=== PATIENT | male | born 1975 | race Hispanic/Latino ===

== ENCOUNTER 2017-10-16 17:42 | Emergency (ER) | payer MEDICAID, OTHER ==
[2017-10-16 17:48] VITALS: BP 117/71; PULSE 94; RESP 18; TEMP 98.2; O2SAT 97
[2017-10-16 18:02] VITALS: BMI 24.7
[2017-10-16] MEDS ORDERED: TDAP Vaccine 0.5 mL Syr IM ONE (18:12)
--- NOTE | 2017-10-16 18:14 | ED PDOC ---
Arrival/HPI - General Chief Complaint: Abnormal Skin Integrity Time Seen by Provider: 10/16/17 18:02 Historian: Patient - History of Present Illness Narrative History of Present Illness (Text): 10/16/17 18:19 42 yr old male presents today brought in by police for medical clearance for incarceration. pt c/o chronic wounds to both upper extremities. pt states he has had wounds to the upper arms bilaterally for over 1 year. pt denies pain. pt admits to hx of heroine and cocaine use. pt denies fevers/chills. denies SI or HI. no other complaints. Past Medical History - Provider Review Nursing Documentation Reviewed: Yes - Travel History Have you recently traveled outside [place] w/in the past 3 mons?: No - Infectious Disease Hx of Infectious Diseases: None - Tetanus Immunization Tetanus Immunization: Unknown - Past Medical History Past Medical History: No Previous - Cardiac Hx Cardiac Disorders: No - Pulmonary Hx Respiratory Disorders: No - Neurological Hx Neurological Disorder: No - HEENT Hx HEENT Disorder: No - Renal Hx Renal Disorder: No - Endocrine/Metabolic Hx Endocrine Disorders: No - Hematological/Oncological Hx Blood Disorders: Yes Hx Hepatitis C: Yes - Integumentary Hx Dermatological Disorder: Yes Hx Cellulitis: Yes - Musculoskeletal/Rheumatological Hx Musculoskeletal Disorders: No - Gastrointestinal Hx Gastrointestinal Disorders: No - Genitourinary/Gynecological Hx Genitourinary Disorders: No - Psychiatric Hx Psychophysiologic Disorder: Yes Hx Anxiety: Yes Hx Depression: Yes Hx Emotional Abuse: No Hx Substance Use: Yes (HEROINE, COCAINE) - Past Surgical History Past Surgical History: No Previous - Surgical History Hx Appendectomy: Yes - Suicidal Assessment Feels Threatened In Home Enviroment: No Family/Social History - Physician Review Nursing Documentation Reviewed: Yes Family/Social History: Unknown Family HX Smoking Status: Heavy Smoker > 10 Cigarettes Daily Hx Alcohol Use: No Hx Substance Use: Yes (HEROINE, COCAINE) Hx Substance Use Treatment: Yes (opiates) Allergies/Home Meds Allergies/Adverse Reactions: Allergies No Known Allergies Allergy (Verified 10/16/17 17:53) Home Medications: Home Meds Medication Instructions Recorded Confirmed Unobtainable 10/16/17 10/16/17 Review of Systems - Review of Systems Constitutional: absent: Fatigue, Fevers Respiratory: absent: SOB, Cough Cardiovascular: absent: Chest Pain, Palpitations Gastrointestinal: absent: Abdominal Pain, Nausea, Vomiting Musculoskeletal: absent: Arthralgias, Back Pain, Neck Pain Skin: Skin Lesions Neurological: absent: Headache Psychiatric: absent: Anxiety, Depression, Suicidal Ideation Physical Exam Vital Signs Reviewed: Yes Vital Signs Temp Pulse Resp BP Pulse Ox 10/16/17 17:47 98.2 F 94 H 18 117/71 97 Temperature: Afebrile Blood Pressure: Normal Pulse: Regular Respiratory Rate: Normal Appearance: Positive for: Well-Appearing, Non-Toxic, Comfortable Pain Distress: None Mental Status: Positive for: Alert and Oriented X 3 - Systems Exam Head: Present: Other (few scabs noted to the right cheek; no erythema; no edema. no purulent discharge) Mouth: Present: Moist Mucous Membranes Respiratory/Chest: Present: Clear to Auscultation Cardiovascular: Present: Regular Rate and Rhythm Upper Extremity: Present: Normal ROM, NORMAL PULSES, Neurovascularly Intact, Capillary Refill < 2s, Other (Along volar aspect of both forearms there are multiple small wounds of varying size without surrounding erythema, edema, tenderness or purulent discharge. ). No: Tenderness, Swelling Neurological: Present: GCS=15, Speech Normal Skin: Present: Warm, Dry Psychiatric: Present: Alert, Oriented x 3 Medical Decision Making ED Course and Treatment: 10/16/17 18:23 42yr old male with hx of cocaine use and IV drug use with multiple chronic ulcerations to volar aspect of forearms bilaterally. vitals stable; afebrile. no SI or HI. pt comfortably in no distress. wounds are chronic; pt states they have been present for over a year; there are no signs of infection. no erythema; no discharge. no tenderness. wounds cleaned/bacitracin applied/ dressings applied. tetanus updated. pt seen and evaluated by dr. mas. pt is medically cleared for incarceration. pt will need outpatient wound care. pt was advised to return if signs of infection develop; high fevers, pain, swelling, redness, purulent discharge; pt was advised to avoid IVDU. Patient verbalizes understanding of discharge instructions and need for immediate followup. all aspects of this case were discussed the attending of record. impression; chronic wounds, extremity Patient is medically cleared for incarceration. Follow up with primary care physician Follow up with wound center. - Medication Orders Current Medication Orders: Discontinued Medications Tetanus/Reduced Diphtheria/Acell Pertussis (Boostrix Vaccine Inj) 0.5 ml IM .ONCE ONE Stop: 10/16/17 18:13 Last Admin: 10/16/17 18:22 Dose: 0.5 ml Immunization Registry Document 10/16/17 18:22 GMD (Rec: 10/16/17 18:23 GMD [id number]) Immunization Registry Consent Date 10/16/17 Disposition/Present on Arrival - Present on Arrival Any Indicators Present on Arrival: No History of DVT/PE: No History of Uncontrolled Diabetes: No Urinary Catheter: No History of Decub. Ulcer: No History Surgical Site Infection Following: None - Disposition Have Diagnosis and Disposition been Completed?: Yes Diagnosis: Chronic wound of extremity Disposition: RELEASED IN POLICE CUSTODY Disposition Time: 18:17 Patient Plan: Discharge Condition: GOOD Additional Instructions: Patient is medically cleared for incarceration. Follow up with primary care physician Follow up with wound center. Referrals: PCP,NO [Primary Care Provider] - Follow up with primary [facility] [Outside] - Follow up with primary [facility] [Outside] - Follow up with primary Forms: [employer] (Estonian)
== END 2017-10-16 18:34 ==
LOC: ED 17:42
DX: L98.499 Non-pressure chronic ulcer of skin of other sites with unspecified severity (principal); Z23 Encounter for immunization; Z65.3 Problems related to other legal circumstances

== ENCOUNTER 2018-07-22 20:26 | Emergency (ER) | payer MEDICAID ==
--- NOTE | 2018-07-22 20:41 | ED PDOC ---
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 Patient states he has been experiencing right eye swelling and redness over the past 2 days. Patient also reports an abscess to the right 3rd toe. Patient denies any fever, chills, chest pain, shortness of breath, nausea, vomiting, diarrhea, urinary symptoms, back pain, neck pain, headache, dizziness, or any other complaints. Symptom Onset: Gradual Symptom Course: Unchanged Activities at Onset: Light Context: Home Past Medical History - Provider Review Nursing Documentation Reviewed: Yes - Infectious Disease Hx of Infectious Diseases: None - Tetanus Immunization Tetanus Immunization: Unknown - Past Medical History Past Medical History: No Previous - Cardiac Hx Cardiac Disorders: No - Pulmonary Hx Respiratory Disorders: No - Neurological Hx Neurological Disorder: No - HEENT Hx HEENT Disorder: No - Renal Hx Renal Disorder: No - Endocrine/Metabolic Hx Endocrine Disorders: No - Hematological/Oncological Hx Blood Disorders: No - Integumentary Hx Dermatological Disorder: No - Musculoskeletal/Rheumatological Hx Musculoskeletal Disorders: No - Gastrointestinal Hx Gastrointestinal Disorders: No - Genitourinary/Gynecological Hx Genitourinary Disorders: No - Psychiatric Hx Psychophysiologic Disorder: Yes Hx Anxiety: Yes Hx Depression: Yes Hx Emotional Abuse: No Hx Substance Use: Yes - Past Surgical History Past Surgical History: No Previous - Surgical History Hx Appendectomy: Yes - Suicidal Assessment Feels Threatened In Home Enviroment: No Family/Social History - Physician Review Nursing Documentation Reviewed: Yes Family/Social History: Unknown Family HX Smoking Status: Heavy Smoker > 10 Cigarettes Daily Hx Alcohol Use: No Hx Substance Use: Yes Hx Substance Use Treatment: Yes (opiates) Allergies/Home Meds Allergies/Adverse Reactions: Allergies No Known Allergies Allergy (Verified 07/22/18 20:31) Home Medications: Home Meds Medication Instructions Recorded Confirmed clonazePAM [Klonopin] 0.5 mg PO BID 07/22/18 07/22/18 Review of Systems - Physician Review All systems were reviewed & negative as marked: Yes - Review of Systems Constitutional: Normal. absent: Fevers Eyes: Other (+right eye swelling) ENT: Normal Respiratory: Normal. absent: SOB, Cough Cardiovascular: Normal. absent: Chest Pain Gastrointestinal: Normal. absent: Abdominal Pain, Diarrhea, Nausea, Vomiting Genitourinary Male: Normal. absent: Dysuria, Frequency, Hematuria, Urinary Output Changes Musculoskeletal: Normal. absent: Back Pain, Neck Pain Skin: Abscess (+right 3rd toe abscess) Neurological: Normal. absent: Headache, Dizziness Endocrine: Normal Hemo/Lymphatic: Normal Psychiatric: Normal Physical Exam Vital Signs Reviewed: Yes Temperature: Afebrile Blood Pressure: Normal Pulse: Regular Respiratory Rate: Normal Appearance: Positive for: Well-Appearing, Non-Toxic, Comfortable Pain Distress: None Mental Status: Positive for: Alert and Oriented X 3 - Systems Exam Head: Present: Atraumatic, Normocephalic Pupils: Present: PERRL Extroacular Muscles: Present: EOMI Conjunctiva: Present: Normal Mouth: Present: Moist Mucous Membranes Neck: Present: Normal Range of Motion Respiratory/Chest: Present: Clear to Auscultation, Good Air Exchange. No: Respiratory Distress, Accessory Muscle Use Cardiovascular: Present: Regular Rate and Rhythm, Normal S1, S2. No: Murmurs Abdomen: No: Tenderness, Distention, Peritoneal Signs Back: Present: Normal Inspection Upper Extremity: Present: Normal Inspection. No: Cyanosis, Edema Lower Extremity: Present: Normal Inspection, Other (right 2nd toe swollen no infection). No: Edema Neurological: Present: GCS=15, CN II-XII Intact, Speech Normal Skin: Present: Warm, Dry, Normal Color. No: Rashes Psychiatric: Present: Alert, Oriented x 3, Normal Insight, Normal Concentration Medical Decision Making ED Course and Treatment: 07/22/18 20:40 Impression: 42 year old male complaining of right eye swelling and right 3rd toe abscess. Plan: -- CT Orbits/Facials w/o contrast -- Labs, blood cultures -- Reassess and disposition Prior Visits: Notes and results from previous visits were reviewed. Progress Notes: 07/22/18 22:31 CT Orbits/Facial: BONES: No acute fracture or aggressive appearing osseous lesion. The mandible is intact. SOFT TISSUES: Diffuse right facial and right periorbital soft tissue swelling consistent with cellulitis. SINUSES: The sinuses are clear. ORBITS: The orbits are normal. No retrobulbar hematoma or mass. MISCELLANEOUS: There is a small right inferior periorbital fluid collection noted measuring 1.2 x 0.77 suspicious for a small abscess. IMPRESSION: 1. Diffuse right facial and right periorbital soft tissue swelling consistent with cellulitis. 2. There is a small right inferior periorbital fluid collection noted measuring 1.2 x 0.77 suspicious for a small abscess. Electronically signed on Jul 22, 2018 10:22:44 PM EST by: Raheel Sánchez M.D., JASPER Certified By [facility] Fellowship Trained MRI and CT Specialist 07/22/18 22:[address] Rudolph, who is aware and agrees with plan. Accepts pt in to hospitalist service. Pt will be admitted to [facility] for periorbital cellulitis. vice president quality assurance notified. - Lab Interpretations I have reviewed the lab results: Yes - RAD Interpretation Recreation Aide: Radiologist - Scribe Statement The provider has reviewed the documentation as recorded by the Alin Meraz Provider Scribe Attestation: All medical record entries made by the Scribe were at my direction and personally dictated by me. I have reviewed the chart and agree that the record accurately reflects my personal performance of the history, physical exam, medical decision making, and the department course for this patient. I have also personally directed, reviewed, and agree with the discharge instructions and disposition. Disposition/Present on Arrival - Present on Arrival Any Indicators Present on Arrival: No History of DVT/PE: No History of Uncontrolled Diabetes: No Urinary Catheter: No History of Decub. Ulcer: No History Surgical Site Infection Following: None - Disposition Have Diagnosis and Disposition been Completed?: Yes Diagnosis: Periorbital cellulitis of right eye Disposition: HOSPITALIZED Disposition Time: 23:00 Condition: FAIR
[2018-07-22 21:23] LABS: BASO # 0.03 K/mm3 (0.0-2.0); BASO % 0.3 % (0.0-3.0); EOS # 0.1 (0.0-0.7); EOS % 1.1 % (1.5-5.0); GRAN # 8.67 (1.4-6.5); GRAN % 74.2 % (50.0-68.0); HEMOGLOBIN 10.5 g/dL (14.0-18.0); LYMPH # 2.2 (1.2-3.4); LYMPH % 18.5 % (22.0-35.0); MEAN CELL VOLUME 81.5 fl (80.0-105.0); MEAN CORPUSCULAR HEMOGLOBIN 25.9 pg (25.0-35.0); MEAN CORPUSCULAR HGB CONC 31.7 g/dl (31.0-37.0); MEAN PLATELET VOLUME 8.9 fl (7.0-11.0); MONO # 0.7 (0.1-0.6); MONO % 5.9 % (1.0-6.0); RBC 4.06 10^6/uL (3.5-6.1); RED CELL DISTRIBUTION WIDTH 15.7 % (11.5-14.5); WHITE BLOOD COUNT 11.7 10^3/uL (4.5-11.0)
[2018-07-22 21:33] LABS: ALBUMIN 3.5 g/dL (3.0-4.8); ALT/SGPT 34 U/L (7-56); AST/SGOT 38 U/L (17-59); BLOOD UREA NITROGEN 4 mg/dL (7-21); CALCIUM 8.8 mg/dL (8.4-10.5); GFR NON-AFRICAN AMERICAN > 60
[2018-07-22] MEDS ORDERED: Vancomycin 1gm in NS 250ml 1 GM/250 ML BAG IVPB STA (21:49)
[2018-07-22] MEDS ORDERED: Piperacillin/Tazobact 3.375 gm 100 ML IVPB STA (23:34)
[2018-07-22 23:52] LABS: IRON 44 ug/dL (45-180)
[2018-07-23 00:01] LABS: % IRON SATURATION 12 % (20-55); TOTAL IRON BINDING CAPACITY 369 ug/dL (261-462)
[2018-07-23] MEDS: Vancomycin 1gm in NS 250ml 1 GM/250 ML BAG IVPB SCH ×2 (02:52→13:02)
--- NOTE | 2018-07-23 02:59 | CP.PCM.HP ---
<KarolAmadou arizmendi - Last Filed: 07/23/18 07:33> History of Present Illness - History of Present Illness History of Present Illness: PGY-1 H&P for Dr[address] 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 Patient states the swelling started 2 days ago after he popped a pimple under his right eyelid. He states that he can still move his eyes and has no changes in vision. He denies trauma to his eye. Patient also complains of pain in the right 2nd toe and states that he might have accidentally stepped on a needle one month ago. Patient also has an open wounds on his left and right forearm that he cut himself and uses the site for when he is injecting himself with heroin. He denies suicidal and homicidal ideation. Patient further denies any fever, chills, chest pain, shortness of breath, nausea, vomiting, diarrhea, urinary symptoms, back pain, neck pain, headache, dizziness, or any other complaints. 12 points ROS reviewed and negative except stated in HPI. 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 25 pack years smoker. Denies alcohol use. Was recently incarcerated 1 week ago. Family Hx: denies Meds: Klonopin 0.5mg PO BID PMD: Dr. Urbina Present on Admission - Present on Admission Any Indicators Present on Admission: No History of DVT/PE: No History of Uncontrolled Diabetes: No Urinary Catheter: No Decubitus Ulcer Present: No Review of Systems - Review of Systems All systems: reviewed and no additional remarkable complaints except Past Patient History - Infectious Disease Hx of Infectious Diseases: None - Tetanus Immunizations Tetanus Immunization: Unknown - Past Social History Smoking Status: Heavy Smoker > 10 Cigarettes Daily - CARDIAC Hx Cardiac Disorders: No - PULMONARY Hx Respiratory Disorders: No - NEUROLOGICAL Hx Neurological Disorder: No - HEENT Hx HEENT Problems: No - RENAL Hx Chronic Kidney Disease: No - ENDOCRINE/METABOLIC Hx Endocrine Disorders: No - HEMATOLOGICAL/ONCOLOGICAL Hx Blood Disorders: No - INTEGUMENTARY Hx Dermatological Problems: No - MUSCULOSKELETAL/RHEUMATOLOGICAL Hx Musculoskeletal Disorders: No - GASTROINTESTINAL Hx Gastrointestinal Disorders: No - GENITOURINARY/GYNECOLOGICAL Hx Genitourinary Disorders: No - PSYCHIATRIC Hx Psychophysiologic Disorder: Yes Hx Anxiety: Yes Hx Depression: Yes Hx Emotional Abuse: No Hx Substance Use: Yes - SURGICAL HISTORY Hx Appendectomy: Yes Meds Home Medications: Home Medication List Medication Instructions Recorded Confirmed Type Cephalexin [Keflex] 500 mg PO TID 14 Days #42 capsule 07/25/18 Rx Lactobacillus Acidophilus 1 each PO BID 20 Days #40 capsule 07/25/18 Rx [Acidophilus Lactobacilli] RX: Bacitracin Ointment 1 g TOP BID #1 tube 07/25/18 Rx [Bacitracin] RX: Clindamycin [Cleocin] 450 mg PO TID 14 Days #42 cap 07/25/18 Rx RX: Neomycin/Polymyxin/Dexamethaso 1 drop OD TID 10 Days #1 bottle 07/25/18 Rx [Maxitrol Opht Susp] RX: Tetrahydrozoline 0.05% Opht 2 drop OD TID 5 Days #1 bottle 07/25/18 Rx [Visine 0.05% Opht Soln] Allergies/Adverse Reactions: Allergies Allergy/AdvReac Type Severity Reaction Status Date / Time No Known Allergies Allergy Verified 07/25/18 11:50 Physical Exam - Constitutional Appears: No Acute Distress, Unkempt - Head Exam Head Exam: ATRAUMATIC - Eye Exam Eye Exam: EOMI, Periorbital swelling (Right-sided), PERRL Additional comments: Right periorbital swelling and redness. Ocular muscles intact. Pupils reactive to light. - ENT Exam ENT Exam: Mucous Membranes Moist - Neck Exam Additional comments: Wound with scabbing noted at the angle of the right jaw. - Respiratory Exam Respiratory Exam: Clear to Auscultation Bilateral. absent: Rales, Rhonchi, Wheezes, Respiratory Distress - Cardiovascular Exam Cardiovascular Exam: REGULAR RHYTHM, +S1, +S2. absent: Gallop, Rubs, Systolic Murmur - GI/Abdominal Exam GI & Abdominal Exam: Normal Bowel Sounds, Soft. absent: Distended, Guarding, Tenderness - Extremities Exam Extremities exam: Negative for: calf tenderness Additional comments: 2nd right toe tender to palpation and slightly swollen. - Back Exam Back exam: absent: CVA tenderness (L), CVA tenderness (R), paraspinal tenderness - Neurological Exam Neurological exam: Alert, CN II-XII Intact, Oriented x3 - Psychiatric Exam Psychiatric exam: Normal Affect, Normal Mood - Skin Skin Exam: Abrasion (Abrasions and scratches seen on all extremities, neck, chest, and back. Lesions of folliculitis seen on upper back. Open wounds with scabbing measuring 5cm x 3cm on left and right forearm, no active bleeding noted. Scabbed areas seen on right jawline.) Results - Vital Signs Recent Vital Signs: Last Vital Signs Temp 98.8 F 07/23/18 01:21 Pulse 70 07/23/18 01:21 Resp 18 07/23/18 01:21 BP 100/58 L 07/23/18 01:21 Pulse Ox 100 07/23/18 01:21 - Labs Result Diagrams: 07/22/18 21:00 07/22/18 21:00 Labs: Laboratory Results - last 24 hr 07/22/18 07/22/18 07/22/18 21:00 21:00 23:10 WBC 11.7 H RBC 4.06 Hgb 10.5 L Hct 33.1 L MCV 81.5 MCH 25.9 MCHC 31.7 RDW 15.7 H Plt Count 260 MPV 8.9 Gran % 74.2 H Lymph % (Auto) 18.5 L Lander % (Auto) 5.9 Eos % (Auto) 1.1 L Baso % (Auto) 0.3 Gran # 8.67 H Lymph # (Auto) 2.2 Lander # (Auto) 0.7 H Eos # (Auto) 0.1 Baso # (Auto) 0.03 Retic Count 0.51 Sodium 137 Potassium 3.9 Chloride 101 Carbon Dioxide 30 Anion Gap 10 BUN 4 L Creatinine 0.6 L Est GFR ( Amer) > 60 Est GFR (Non-Af Amer) > 60 Random Glucose 152 H Calcium 8.8 Iron TIBC % Saturation Total Bilirubin 0.5 AST 38 ALT 34 Alkaline Phosphatase 68 Total Protein 6.9 Albumin 3.5 Globulin 3.4 Albumin/Globulin Ratio 1.0 L 07/22/18 23:10 WBC RBC Hgb Hct MCV MCH MCHC RDW Plt Count MPV Gran % Lymph % (Auto) Lander % (Auto) Eos % (Auto) Baso % (Auto) Gran # Lymph # (Auto) Lander # (Auto) Eos # (Auto) Baso # (Auto) Retic Count Sodium Potassium Chloride Carbon Dioxide Anion Gap BUN Creatinine Est GFR ( Amer) Est GFR (Non-Af Amer) Random Glucose Calcium Iron 44 L TIBC 369 % Saturation 12 L Total Bilirubin AST ALT Alkaline Phosphatase Total Protein Albumin Globulin Albumin/Globulin Ratio Assessment & Plan - Assessment and Plan (Free Text) Assessment: Mike Lee is a 42 year old male, whose past medical history includes IVDA, Hepatitis C (untreated), 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 Plan: Right periorbital cellulitis - CT orbit/facial: Diffuse right facial and right periorbital soft tissue swelling consistent with cellulitis. There is a small right inferior periorbital fluid collection noted measuring 1.2 x 0.77 suspicious for a small abscess. - Vancomycin 1g IV Q12 (Started on 07/22) - Zosyn 3.375g IV Q12 (Started on 07/22) - Procalcitonin: pending - Blood culture: pending Right 2nd toe pain, r/o foreign body - Foot, right 2nd digit Xray: pending Normocytic anemia - Hb/Hct: 10.5/33.1 - Fe: 44 - TIBC: 369 - % saturation: 12 Hepatitis C infection - Not on treatment - Advised to get outpatient treatment Heroin and cocaine abuse - UDS: pending - Educated patient on drugs cessation Tobacco use disorder - Nicoderm - Educated patient on smoking cessation Prophylaxis - DVT: Heparin 5000 SC Q8 - GI: Protonix 40mg IV QD Case discussed with Dr. Klaudia Ferguson, PGY-1 <Marcia Rudolph - Last Filed: 07/26/18 20:44> Results - Vital Signs Recent Vital Signs: Last Vital Signs Temp 98.6 F 07/23/18 03:46 Pulse 74 07/23/18 06:40 Resp 18 07/23/18 06:40 BP 95/55 L 07/23/18 06:40 Pulse Ox 95 07/23/18 06:40 - Labs Result Diagrams: 07/24/18 07:40 07/24/18 07:40 Labs: Laboratory Results - last 24 hr 07/22/18 07/22/18 07/22/18 21:00 21:00 23:10 WBC 11.7 H RBC 4.06 Hgb 10.5 L Hct 33.1 L MCV 81.5 MCH 25.9 MCHC 31.7 RDW 15.7 H Plt Count 260 MPV 8.9 Gran % 74.2 H Lymph % (Auto) 18.5 L Lander % (Auto) 5.9 Eos % (Auto) 1.1 L Baso % (Auto) 0.3 Gran # 8.67 H Lymph # (Auto) 2.2 Lander # (Auto) 0.7 H Eos # (Auto) 0.1 Baso # (Auto) 0.03 Retic Count 0.51 Sodium 137 Potassium 3.9 Chloride 101 Carbon Dioxide 30 Anion Gap 10 BUN 4 L Creatinine 0.6 L Est GFR ( Amer) > 60 Est GFR (Non-Af Amer) > 60 Random Glucose 152 H Calcium 8.8 Iron TIBC % Saturation Total Bilirubin 0.5 AST 38 ALT 34 Alkaline Phosphatase 68 Total Protein 6.9 Albumin 3.5 Globulin 3.4 Albumin/Globulin Ratio 1.0 L 07/22/18 23:10 WBC RBC Hgb Hct MCV MCH MCHC RDW Plt Count MPV Gran % Lymph % (Auto) Lander % (Auto) Eos % (Auto) Baso % (Auto) Gran # Lymph # (Auto) Lander # (Auto) Eos # (Auto) Baso # (Auto) Retic Count Sodium Potassium Chloride Carbon Dioxide Anion Gap BUN Creatinine Est GFR ( Amer) Est GFR (Non-Af Amer) Random Glucose Calcium Iron 44 L TIBC 369 % Saturation 12 L Total Bilirubin AST ALT Alkaline Phosphatase Total Protein Albumin Globulin Albumin/Globulin Ratio Attending/Attestation - Attestation I have personally seen and examined this patient.: Yes I have fully participated in the care of the patient.: Yes I have reviewed all pertinent clinical information: Yes Notes (Text): 07/23/18 07:48 Pt seen with the resident by the bedside. Case discussed in detail. Agree with documentation, assessments, and plan of treatment.
[2018-07-23 08:04] LABS: BASO # 0.02 K/mm3 (0.0-2.0); BASO % 0.2 % (0.0-3.0); EOS # 0.2 (0.0-0.7); EOS % 1.8 % (1.5-5.0); GRAN # 6.91 (1.4-6.5); GRAN % 69.9 % (50.0-68.0); HEMOGLOBIN 11.6 g/dL (14.0-18.0); LYMPH # 2.1 (1.2-3.4); LYMPH % 21.1 % (22.0-35.0); MEAN CELL VOLUME 82.1 fl (80.0-105.0); MEAN CORPUSCULAR HEMOGLOBIN 25.3 pg (25.0-35.0); MEAN CORPUSCULAR HGB CONC 30.9 g/dl (31.0-37.0); MONO # 0.7 (0.1-0.6); RBC 4.58 10^6/uL (3.5-6.1); WHITE BLOOD COUNT 9.9 10^3/uL (4.5-11.0)
[2018-07-23 08:17] LABS: ALBUMIN 3.5 g/dL (3.0-4.8); ALT/SGPT 38 U/L (7-56); AST/SGOT 40 U/L (17-59); BLOOD UREA NITROGEN 4 mg/dL (7-21); CALCIUM 8.8 mg/dL (8.4-10.5); GFR NON-AFRICAN AMERICAN > 60
[2018-07-23] MEDS ORDERED: Piperacillin/Tazobact 3.375 gm 100 ML IVPB SCH (10:00)
--- NOTE | 2018-07-23 10:57 | RAD ---
Date of service: 07/23/2018 HISTORY: r/o PNA COMPARISON: No prior. FINDINGS: LUNGS: No active pulmonary disease. PLEURA: No significant pleural effusion identified, no pneumothorax apparent. CARDIOVASCULAR: No aortic atherosclerotic calcification present. Normal cardiac size. No pulmonary vascular congestion. OSSEOUS STRUCTURES: No significant abnormalities. VISUALIZED UPPER ABDOMEN: Normal. OTHER FINDINGS: None. IMPRESSION: No active disease.
--- NOTE | 2018-07-23 11:20 | RAD ---
Date of service: 07/23/2018 PROCEDURE: Right 2nd toe HISTORY: Rule out foreign body COMPARISON: TECHNIQUE: Three views FINDINGS: There is dislocation of the 2nd PIP joint. The middle and distal phalanx are dislocated dorsal to the proximal phalanx. There is no visible fracture IMPRESSION: As above
[2018-07-23] MEDS: Tetrahydrozoline Opht 0.05% Sol (15 ml) OU SCH ×4 (13:04→22:44)
[2018-07-23] MEDS ORDERED: Bacitracin 500 Units/gm Oint Foilpak UD ONE ×2 (13:09→19:27)
[2018-07-23] MEDS: Bacitracin Ointment 30 GM TUBE TOP SCH ×4 (13:12→22:45)
--- NOTE | 2018-07-23 13:54 | CT ---
Date of service: 07/22/2018 PROCEDURE: CT MAXILLOFACIAL BONES WITHOUT CONTRAST HISTORY: r/o abscess COMPARISON: None available. TECHNIQUE: Contiguous axial CT images of the maxillofacial bones were obtained. Coronal and sagittal reformats were generated. Radiation dose: Total exam DLP = 953.46 mGy-cm. This CT exam was performed using one or more of the following dose reduction techniques: Automated exposure control, adjustment of the mA and/or kV according to patient size, and/or use of iterative reconstruction technique. FINDINGS: NASAL BONES: Unremarkable. ORBITS: There is preseptal soft tissue swelling of the right orbit. There is no intraorbital inflammation PARANASAL SINUSES/ MASTOIDS: Clear. MAXILLA: Unremarkable. MANDIBLE/ TEMPOROMANDIBULAR JOINTS: Unremarkable. SKULL BASE: Unremarkable. TEMPORAL BONES: Middle ears and mastoid grossly unremarkable. OTHER FINDINGS: The report concurs with the preliminary [facility] report IMPRESSION: There is preseptal soft tissue swelling of the right orbit. There is no intraorbital inflammation
[2018-07-23 18:52] LABS: BARBITURATES, UR NEGATIVE (NEGATIVE); BENZODIAZEPINES, UR NEGATIVE (NEGATIVE); OPIATES, UR POSITIVE (NEGATIVE); PHENCYCLIDINE, UR NEGATIVE (NEGATIVE)
--- NOTE | 2018-07-23 19:19 | CP.PCM.CON ---
History of Present Illness - History of Present Illness History of Present Illness: Infectious Disease Consultation: July 23, 2018 42 yo male with right periorbital swelling with PMHx of Hepatitis C, IVDA, anxiety, and depression. He states no change in vision and he can move the eye in all morrison. He is also noted to have open wounds on both arms. He is still actively using Heroin. He also complains of right 2nd toe pain. PMHx: IVDA, Hepatitis C, history of multiple abscesses, anxiety, depression PSHx: I&D for neck abscess and other abscesses on body. Allergies: NKDA Social Hx: IV Heroin use daily, Cocaine use, 25 years tobacco use, No EtOH Active Medications Bacitracin (Bacitracin) 0 gm TOP 5XD [facility]LY Last Admin: 07/23/18 13:12 Dose: 2 % Clonazepam (Klonopin) 0.5 mg PO BID KARLY; Protocol Last Admin: 07/23/18 09:40 Dose: 0.5 mg Heparin Sodium (Porcine) (Heparin) 5,000 units SC Q8 [facility]LY; Protocol Last Admin: 07/23/18 05:53 Dose: 5,000 units Vancomycin HCl (Vancomycin 1gm) 1 gm in 250 mls @ 167 mls/hr IVPB Q12H KARLY; Protocol Last Admin: 07/23/18 13:02 Dose: 167 mls/hr Nicotine (Nicoderm Cq) 1 patch TD DAILY KARLY Last Admin: 07/23/18 13:04 Dose: 1 patch Pantoprazole Sodium (Protonix Ec Tab) 40 mg PO ACB KARLY Tetrahydrozoline HCl/Zinc Sulfate (Visine 0.05% Opht Soln) 0 ml OU 5XD KARLY Last Admin: 07/23/18 13:04 Dose: 0.05 % Family Hx: none given ROS: Right orbital swelling, multiple open lesions on the arms No chest pain, abdominal pain, melena, hematuria, hematemesis, hematochezia Past Patient History - Infectious Disease Hx of Infectious Diseases: None - Tetanus Immunizations Tetanus Immunization: Unknown - Past Social History Smoking Status: Heavy Smoker > 10 Cigarettes Daily - CARDIAC Hx Cardiac Disorders: No - PULMONARY Hx Respiratory Disorders: No - NEUROLOGICAL Hx Neurological Disorder: No - HEENT Hx HEENT Problems: No - RENAL Hx Chronic Kidney Disease: No - ENDOCRINE/METABOLIC Hx Endocrine Disorders: No - HEMATOLOGICAL/ONCOLOGICAL Hx Blood Disorders: No - INTEGUMENTARY Hx Dermatological Problems: No - MUSCULOSKELETAL/RHEUMATOLOGICAL Hx Musculoskeletal Disorders: No - GASTROINTESTINAL Hx Gastrointestinal Disorders: No - GENITOURINARY/GYNECOLOGICAL Hx Genitourinary Disorders: No - PSYCHIATRIC Hx Psychophysiologic Disorder: Yes Hx Anxiety: Yes Hx Depression: Yes Hx Emotional Abuse: No Hx Substance Use: Yes - SURGICAL HISTORY Hx Appendectomy: Yes Meds Allergies/Adverse Reactions: Allergies Allergy/AdvReac Type Severity Reaction Status Date / Time No Known Allergies Allergy Verified 07/22/18 20:31 - Medications Medications: Current Medications Bacitracin (Bacitracin) 0 gm TOP 5XD KARLY Last Admin: 07/23/18 13:12 Dose: 2 % Clonazepam (Klonopin) 0.5 mg PO BID KARLY; Protocol Last Admin: 07/23/18 09:40 Dose: 0.5 mg Heparin Sodium (Porcine) (Heparin) 5,000 units SC Q8 [facility]LY; Protocol Last Admin: 07/23/18 05:53 Dose: 5,000 units Vancomycin HCl (Vancomycin 1gm) 1 gm in 250 mls @ 167 mls/hr IVPB Q12H [facility]; Protocol Last Admin: 07/23/18 13:02 Dose: 167 mls/hr Nicotine (Nicoderm Cq) 1 patch TD DAILY K[facility]LY Last Admin: 07/23/18 13:04 Dose: 1 patch Pantoprazole Sodium (Protonix Ec Tab) 40 mg PO ACB [facility] Tetrahydrozoline HCl/Zinc Sulfate (Visine 0.05% Opht Soln) 0 ml OU 5XD K[facility]LY Last Admin: 07/23/18 13:04 Dose: 0.05 % Physical Exam - Constitutional Appears: No Acute Distress, Unkempt, Chronically Ill - Head Exam Head Exam: ATRAUMATIC - Eye Exam Eye Exam: EOMI, Periorbital swelling (right), Periorbital tenderness, PERRL Pupil Exam: NORMAL ACCOMODATION, PERRL - ENT Exam ENT Exam: Mucous Membranes Moist, Normal External Ear Exam, TM's Normal Bilaterally - Neck Exam Additional comments: scabbing at angle of right jaw. - Respiratory Exam Respiratory Exam: Clear to Auscultation Bilateral, NORMAL BREATHING PATTERN. absent: Rales, Rhonchi, Wheezes - Cardiovascular Exam Cardiovascular Exam: REGULAR RHYTHM, RRR, +S1, +S2 - GI/Abdominal Exam GI & Abdominal Exam: Normal Bowel Sounds, Soft. absent: Distended, Tenderness - Extremities Exam Extremities exam: Positive for: full ROM. Negative for: joint swelling, pedal edema Additional comments: slight pain to 2nd toe right foot. - Neurological Exam Neurological exam: Alert, CN II-XII Intact, Oriented x3 - Psychiatric Exam Psychiatric exam: Normal Affect, Normal Mood - Skin Additional comments: Abrasions and scratches seen on all extremities, neck, chest, and back. Lesions of folliculitis seen on upper back. Open wounds with scabbing measuring 5cm x 3cm on left and right forearm, no active bleeding noted. Scabbed areas seen on right jawline Results - Vital Signs Recent Vital Signs: Last Vital Signs Temp 98 F 07/23/18 13:44 Pulse 89 07/23/18 13:44 Resp 18 07/23/18 13:44 BP 111/60 07/23/18 13:44 Pulse Ox 100 07/23/18 13:44 - Labs Result Diagrams: 07/23/18 07:50 07/23/18 07:50 Labs: Laboratory Results - last 24 hr 07/22/18 07/22/18 07/22/18 21:00 21:00 23:10 WBC 11.7 H RBC 4.06 Hgb 10.5 L Hct 33.1 L MCV 81.5 MCH 25.9 MCHC 31.7 RDW 15.7 H Plt Count 260 MPV 8.9 Gran % 74.2 H Lymph % (Auto) 18.5 L Green % (Auto) 5.9 Eos % (Auto) 1.1 L Baso % (Auto) 0.3 Gran # 8.67 H Lymph # (Auto) 2.2 Green # (Auto) 0.7 H Eos # (Auto) 0.1 Baso # (Auto) 0.03 Retic Count Sodium 137 Potassium 3.9 Chloride 101 Carbon Dioxide 30 Anion Gap 10 BUN 4 L Creatinine 0.6 L Est GFR ( Amer) > 60 Est GFR (Non-Af Amer) > 60 Random Glucose 152 H Calcium 8.8 Phosphorus Magnesium Iron TIBC % Saturation Ferritin Total Bilirubin 0.5 AST 38 ALT 34 Alkaline Phosphatase 68 Total Protein 6.9 Albumin 3.5 Globulin 3.4 Albumin/Globulin Ratio 1.0 L Procalcitonin 0.14 L Urine Opiates Screen Urine Methadone Screen Ur Barbiturates Screen Ur Phencyclidine Scrn Ur Amphetamines Screen U Benzodiazepines Scrn U Oth Cocaine Metabols U Cannabinoids Screen 07/22/18 07/22/18 07/22/18 23:10 23:10 23:10 WBC RBC Hgb Hct MCV MCH MCHC RDW Plt Count MPV Gran % Lymph % (Auto) Green % (Auto) Eos % (Auto) Baso % (Auto) Gran # Lymph # (Auto) Green # (Auto) Eos # (Auto) Baso # (Auto) Retic Count 0.51 Sodium Potassium Chloride Carbon Dioxide Anion Gap BUN Creatinine Est GFR ( Amer) Est GFR (Non-Af Amer) Random Glucose Calcium Phosphorus Magnesium Iron 44 L TIBC 369 % Saturation 12 L Ferritin 23.6 Total Bilirubin AST ALT Alkaline Phosphatase Total Protein Albumin Globulin Albumin/Globulin Ratio Procalcitonin Urine Opiates Screen Urine Methadone Screen Ur Barbiturates Screen Ur Phencyclidine Scrn Ur Amphetamines Screen U Benzodiazepines Scrn U Oth Cocaine Metabols U Cannabinoids Screen 07/23/18 07/23/18 07/23/18 07:50 07:50 18:13 WBC 9.9 RBC 4.58 Hgb 11.6 L Hct 37.6 L MCV 82.1 MCH 25.3 MCHC 30.9 L RDW 16.0 H Plt Count 247 MPV 9.0 Gran % 69.9 H Lymph % (Auto) 21.1 L Green % (Auto) 7.0 H Eos % (Auto) 1.8 Baso % (Auto) 0.2 Gran # 6.91 H Lymph # (Auto) 2.1 Green # (Auto) 0.7 H Eos # (Auto) 0.2 Baso # (Auto) 0.02 Retic Count Sodium 139 Potassium 3.9 Chloride 103 Carbon Dioxide 29 Anion Gap 11 BUN 4 L Creatinine 0.6 L Est GFR ( Amer) > 60 Est GFR (Non-Af Amer) > 60 Random Glucose 88 Calcium 8.8 Phosphorus 3.8 Magnesium 2.1 Iron TIBC % Saturation Ferritin Total Bilirubin 0.8 AST 40 ALT 38 Alkaline Phosphatase 74 Total Protein 7.1 Albumin 3.5 Globulin 3.6 Albumin/Globulin Ratio 1.0 L Procalcitonin Urine Opiates Screen Positive H Urine Methadone Screen Negative Ur Barbiturates Screen Negative Ur Phencyclidine Scrn Negative Ur Amphetamines Screen Negative U Benzodiazepines Scrn Negative U Oth Cocaine Metabols Positive H U Cannabinoids Screen Negative Assessment & Plan - Assessment and Plan (Free Text) Assessment: 42 yo male with IV Heroin and Cocaine use history with right periorbital cellulitis confirmed with CT orbit. Started on Zosyn and IV Vancomycin for care. Hepatitis C does not need to be addressed on this visit. He cannot get treatment until he stops using illicit drugs. Supportive care. Thank you for allowing me to participate in the care of the patient, we will fol low with you.
[2018-07-23 20:10] VITALS: BMI 22.3
[2018-07-23] MEDS ORDERED: Pneumococcal 23-Valent Vaccine IM ONE (20:10)
[2018-07-23] MEDS ORDERED: Influenza Vaccine 60 mcg/0.5 mL SYR (4YR UP) IM ONE (20:10)
[2018-07-23] MEDS: Piperacillin/Tazobact 3.375 gm 100 ML IVPB SCH (22:45)
[2018-07-24] MEDS: Tetrahydrozoline Opht 0.05% Sol (15 ml) OU SCH ×5 (06:50→22:42)
[2018-07-24] MEDS: Bacitracin Ointment 30 GM TUBE TOP SCH ×5 (06:52→22:42)
[2018-07-24] MEDS: Vancomycin 1gm in NS 250ml 1 GM/250 ML BAG IVPB SCH ×2 (06:53→12:32)
[2018-07-24] MEDS: Pantoprazole 40 mg EC Tab PO SCH (06:55)
[2018-07-24 08:36] LABS: BASO # 0.01 K/mm3 (0.0-2.0); BASO % 0.1 % (0.0-3.0); EOS % 0.2 % (1.5-5.0); GRAN # 9.84 (1.4-6.5); GRAN % 85.3 % (50.0-68.0); HEMOGLOBIN 12.7 g/dL (14.0-18.0); LYMPH # 1.4 (1.2-3.4); LYMPH % 11.9 % (22.0-35.0); MEAN CORPUSCULAR HEMOGLOBIN 26.2 pg (25.0-35.0); MEAN CORPUSCULAR HGB CONC 32.7 g/dl (31.0-37.0); MEAN PLATELET VOLUME 9.1 fl (7.0-11.0); MONO # 0.3 (0.1-0.6); MONO % 2.5 % (1.0-6.0); RBC 4.85 10^6/uL (3.5-6.1); RED CELL DISTRIBUTION WIDTH 15.6 % (11.5-14.5); WHITE BLOOD COUNT 11.5 10^3/uL (4.5-11.0)
[2018-07-24 09:39] LABS: ALB/GLOB RATIO 0.9 (1.1-1.8); ALBUMIN 3.5 g/dL (3.0-4.8); ALT/SGPT 43 U/L (7-56); AST/SGOT 43 U/L (17-59); BLOOD UREA NITROGEN 7 mg/dL (7-21); CALCIUM 8.7 mg/dL (8.4-10.5); GFR NON-AFRICAN AMERICAN > 60
--- NOTE | 2018-07-24 09:42 | CP.PCM.PN ---
<Radha Carmichael - Last Filed: 07/24/18 12:14> Subjective - Date & Time of Evaluation Date of Evaluation: 07/24/18 Time of Evaluation: 09:39 - Subjective Subjective: INTERNAL MEDICINE PROGRESS NOTES FOR HOSPITALIST TEAM Radha Carmichael PGY1 Pt seen and examined at bedside this am. Pt reports his R eye swelling has decreased minimaly, however is still painful. He reports he hasn't felt withdrawals. He denies all other 12 point ROS Objective - Vital Signs/Intake and Output Vital Signs (last 24 hours): Temp Pulse Resp BP Pulse Ox 98 F 75 18 113/71 98 07/24/18 06:45 07/24/18 06:45 07/24/18 06:45 07/24/18 06:45 07/24/18 06:45 - Medications Medications: Current Medications Bacitracin (Bacitracin) 0 gm TOP 5XD KARLY Last Admin: 07/24/18 06:52 Dose: 1 applic Clonazepam (Klonopin) 0.5 mg PO BID KARLY; Protocol Last Admin: 07/23/18 19:28 Dose: 0.5 mg Heparin Sodium (Porcine) (Heparin) 5,000 units SC Q8 [facility]ARLY; Protocol Last Admin: 07/24/18 06:51 Dose: 5,000 units Vancomycin HCl (Vancomycin 1gm) 1 gm in 250 mls @ 167 mls/hr IVPB Q12H [facility]; Protocol Last Admin: 07/24/18 06:53 Dose: 167 mls/hr Piperacillin Sod/Tazobactam Sod (Zosyn 3.375 In Ns 100ml) 100 mls @ 25 mls/hr IVPB Q8 [facility]LY; Protocol Last Admin: 07/23/18 22:45 Dose: 25 mls/hr Nicotine (Nicoderm Cq) 1 patch TD DAILY K[facility]LY Last Admin: 07/23/18 13:04 Dose: 1 patch Pantoprazole Sodium (Protonix Ec Tab) 40 mg PO ACB KARLY Last Admin: 07/24/18 06:55 Dose: 40 mg Tetrahydrozoline HCl/Zinc Sulfate (Visine 0.05% Opht Soln) 0 ml OU 5XD K[facility]LY Last Admin: 07/24/18 06:50 Dose: 2 drop - Labs Labs: 07/24/18 07:40 07/23/18 07:50 - Constitutional Appears: Well, Non-toxic, No Acute Distress - Head Exam Head Exam: NORMAL INSPECTION, NORMOCEPHALIC - Eye Exam Eye Exam: Periorbital swelling (R eye, erythema surround preseptal area, superior and inferior orbital rim ) - ENT Exam ENT Exam: Mucous Membranes Moist, Normal Exam - Neck Exam Neck Exam: Normal Inspection. absent: Meningismus, Tenderness - Respiratory Exam Respiratory Exam: Clear to Ausculation Bilateral, NORMAL BREATHING PATTERN - Cardiovascular Exam Cardiovascular Exam: REGULAR RHYTHM, +S1, +S2. absent: Murmur - GI/Abdominal Exam GI & Abdominal Exam: Soft. absent: Tenderness - Extremities Exam Extremities Exam: absent: Calf Tenderness Additional comments: B/l forearm track cao, healing. No erythema or purulence. - Neurological Exam Neurological Exam: Alert, Oriented x3 - Psychiatric Exam Psychiatric exam: Flat Affect, Normal Mood - Skin Skin Exam: Warm Additional comments: Track cao on arms. Scratches noted on b/l tibial region. Multiple tattoos in RUE Assessment and Plan - Assessment and Plan (Free Text) Assessment: 42 IVDA, Hepatitis C (untreated), abscesses secondary to IVDA, cellulitis, folliculitis, anxiety, and depression admitted for R eye periorbital cellulitis Plan: R eye periorbital cellulitis continue vanc/zosyn antibiotics Apply ice packs to region Apply tetrahydrozoline eye drops to R eye Ophthalmology consulted, appreciate recs Infectious Disease on consult. recommend continuing abx. Will not currently treat Hep C as pt is active IVDU f/u cultures Forearm track cao Healing lesions noted along b/l anterior forearms. No erythema, purulence noted Apply bacitracin to affected areas Tobacco use disorder Apply nicoderm patch Nausea Zofran IVP prn Anxiety continue home clonazepam DVT/GI PPx: Hep/PTX po Case seen, examined and discussed with attending physician, Dr. Fierro <Cee Fierro R - Last Filed: 07/26/18 13:41> Objective - Vital Signs/Intake and Output Vital Signs (last 24 hours): Temp Pulse Resp BP Pulse Ox 97.8 F 79 16 129/84 98 07/25/18 14:00 07/25/18 14:00 07/25/18 14:00 07/25/18 14:00 07/25/18 04:10 - Labs Labs: 07/24/18 07:40 07/24/18 07:40 Attending/Attestation - Attestation I have personally seen and examined this patient.: Yes I have fully participated in the care of the patient.: Yes I have reviewed all pertinent clinical information, including history, physical exam and plan: Yes Notes (Text): Patient seen and examined by me with resident at 9:30AM on 07/24/18. Case including HPI, physical exam, and assessment and plan discussed with resident. Agree with above with following additions/corrections. Patient is a 42-year-old male with past medical history significant for IV drug abuse, untreated hepatitis C, abscesses secondary to IV drug abuse, cellulitis, folliculitis, anxiety, drug abuse, and depression that presented to the emergency room in police custody for right eye edema and erythema. Patient states that he is feeling okay. States he is still having some pain around his right eye. He is able to open his right little more today. Patient is denying any loss in vision or change in vision. No headaches or dizziness. He denies any nausea, vomiting, or abdominal pain. No diarrhea. No fevers or chills. No chest pain or palpitations. No shortness of breath. No dysuria. Patient is in police custody. Physical exam: General: Awake and alert lying in bed in no acute distress HEENT: Normocephalic, atraumatic. Extraocular muscles intact. Pupils equal and reactive, no scleral icterus. Positive erythema, edema, and tenderness surrounding right eye. Oropharynx is pink and moist. Neck is supple. Cardiovascular: Regular rhythm. Normal S1 and S2. No murmurs, rubs, or gallops appreciated Pulmonary: Normal respiratory effort. No rhonchi, rales, or wheezing appreciated Gastrointestinal: Soft, nondistended. Nontender. Positive bowel sounds all 4 quadrants. No guarding. Musculoskeletal: Moves all extremities. No calf tenderness. No edema. Central nervous system: AAO 3. Dermatologic: Skin warm and dry. Multiple track cao on body. Bilateral forearm open wounds with some scabbing. Assessment and plan: Patient is a 42-year-old male with past medical history significant for IV drug abuse, untreated hepatitis C, abscesses secondary to IV drug abuse, cellulitis, folliculitis, anxiety, drug abuse, and depression that presented to the emergency room in police custody for right eye edema and erythema. 1. Periorbital cellulitis of the right eye. CT maxillofacial bones without contrast per radiologist showed preseptal soft tissue swelling of the right orbit, no intraorbital inflammation. ID following, recommendations appreciated. Continue Zosyn and vancomycin. Associate Product Manager consulted, follow-up recommendations. Continue with eyedrops. Blood cultures negative to date. Patient afebrile. Mildly elevated WBC. Pro-calcitonin 0.14. 2. Right second toe pain. Right foot x-ray per radiologist showed dislocation of the second PIP joint, middle and distal phalanx dislocated dorsally proximal phalanx, there is no visible fracture. We'll consult podiatry. 3. Anemia of chronic disease. H&H stable. No signs of acute bleeding. Continue to monitor. 4. Heroin and cocaine abuse. UDS positive for both opiates and cocaine. Patient counseled at length on cessation. HIV negative. Continue bacitracin on forearm open track cao 5. Hepatitis C. Untreated. Per ID, patient to stop drug abuse to be a candidate for treatment. 6. Tobacco abuse. Continue nicotine patch. Patient counseled on cessation. 7. GI/DVT prophylaxis. Protonix/heparin. 8. Patient is a full code Case was discussed in detail with the patient regarding this and treatment plan. All questions answered.
[2018-07-24] MEDS: Piperacillin/Tazobact 3.375 gm 100 ML IVPB SCH ×3 (14:39→22:41)
--- NOTE | 2018-07-24 20:20 | CP.PCM.PN ---
Subjective - Date & Time of Evaluation Date of Evaluation: 07/24/18 Time of Evaluation: 19:00 - Subjective Subjective: Infectious Disease Follow Up: July 24, 2018 42 yo male with right periorbital swelling with PMHx of Hepatitis C, IVDA, anxiety, and depression. He states no change in vision and he can move the eye in all morrison. He is also noted to have open wounds on both arms. He is still actively using Heroin. He also complains of right 2nd toe pain. On Zosyn and IV Vancomycin. Right periorbital cellultis very slowly improving but still present. Objective - Vital Signs/Intake and Output Vital Signs (last 24 hours): Temp Pulse Resp BP Pulse Ox 97.1 F L 82 18 117/77 100 07/24/18 08:00 07/24/18 19:44 07/24/18 19:44 07/24/18 19:44 07/24/18 19:44 - Medications Medications: Current Medications Bacitracin (Bacitracin) 0 gm TOP 5XD KARLY Last Admin: 07/24/18 17:39 Dose: 1 applic Clonazepam (Klonopin) 0.5 mg PO BID KARLY; Protocol Last Admin: 07/24/18 17:47 Dose: 0.5 mg Heparin Sodium (Porcine) (Heparin) 5,000 units SC Q8 KARLY; Protocol Last Admin: 07/24/18 14:40 Dose: 5,000 units Vancomycin HCl (Vancomycin 1gm) 1 gm in 250 mls @ 167 mls/hr IVPB Q12H KARLY; Protocol Last Admin: 07/24/18 12:32 Dose: 167 mls/hr Piperacillin Sod/Tazobactam Sod (Zosyn 3.375 In Ns 100ml) 100 mls @ 25 mls/hr IVPB Q8 KARLY; Protocol Last Admin: 07/24/18 14:39 Dose: 25 mls/hr Nicotine (Nicoderm Cq) 1 patch TD DAILY KARLY Last Admin: 07/24/18 10:52 Dose: 1 patch Ondansetron HCl (Zofran Inj) 4 mg IVP Q6H PRN PRN Reason: Nausea/Vomiting Pantoprazole Sodium (Protonix Ec Tab) 40 mg PO ACB KARLY Last Admin: 07/24/18 06:55 Dose: 40 mg Tetrahydrozoline HCl/Zinc Sulfate (Visine 0.05% Opht Soln) 0 ml OU 5XD KARLY Last Admin: 07/24/18 17:40 Dose: 2 drop - Labs Labs: 07/24/18 07:40 07/24/18 07:40 - Constitutional Appears: No Acute Distress, Unkempt, Chronically Ill - Head Exam Head Exam: NORMOCEPHALIC - Eye Exam Eye Exam: EOMI, Periorbital swelling (right.), Periorbital tenderness, PERRL Pupil Exam: NORMAL ACCOMODATION, PERRL - ENT Exam ENT Exam: Mucous Membranes Moist, Normal External Ear Exam, TM's Normal Bilaterally - Neck Exam Additional comments: scabbing at angle of right jaw. - Respiratory Exam Respiratory Exam: Clear to Ausculation Bilateral, NORMAL BREATHING PATTERN. absent: Rales, Rhonchi, Wheezes - Cardiovascular Exam Cardiovascular Exam: REGULAR RHYTHM, RRR, +S1, +S2 - GI/Abdominal Exam GI & Abdominal Exam: Soft, Normal Bowel Sounds. absent: Distended, Tenderness - Extremities Exam Extremities Exam: Full ROM. absent: Joint Swelling, Pedal Edema Additional comments: slight pain to 2nd toe right foot. - Neurological Exam Neurological Exam: Alert, Awake, CN II-XII Intact, Oriented x3 - Psychiatric Exam Psychiatric exam: Normal Affect, Normal Mood - Skin Additional comments: As above. Abrasions and scratches seen on all extremities, neck, chest, and back. Lesions of folliculitis seen on upper back. Open wounds with scabbing measuring 5cm x 3cm on left and right forearm, no active bleeding noted. Scabbed areas seen on r ight jawline Assessment and Plan - Assessment and Plan (Free Text) Assessment: 42 yo male with IV Heroin and Cocaine use history with right periorbital cellulitis confirmed with CT orbit. Started on Zosyn and IV Vancomycin for care. Hepatitis C does not need to be addressed on this visit. He cannot get treatment until he stops using illicit drugs. Supportive care. Very slow resolvement of the right periorbital cellulitis. Thank you for allowing me to participate in the care of the patient, we will follow with you.
[2018-07-25] MEDS: Vancomycin 1gm in NS 250ml 1 GM/250 ML BAG IVPB SCH ×2 (03:01→12:53)
[2018-07-25 03:08] VITALS: O2SAT 98
[2018-07-25] MEDS: Piperacillin/Tazobact 3.375 gm 100 ML IVPB SCH ×3 (05:21→22:21)
[2018-07-25] MEDS: Bacitracin Ointment 30 GM TUBE TOP SCH ×5 (05:22→22:23)
[2018-07-25] MEDS: Tetrahydrozoline Opht 0.05% Sol (15 ml) OU SCH ×4 (05:22→17:56)
[2018-07-25] MEDS: Pantoprazole 40 mg EC Tab PO SCH (08:30)
--- NOTE | 2018-07-25 09:05 | CON ---
DATE: 07/25/2018 HISTORY OF PRESENT ILLNESS: Mr. Lee is a 42-year-old white male admitted to the [facility] for "cellulitis of periorbital region." He has not received bed as of yet and I am seeing him in emergency room because the bed is not available. PHYSICAL EXAMINATION: His visual acuity is 20/20 in both eyes. He has a obvious stye in the area adjacent to his right upper lid, which is flocculent. Extraocular movement is normal. Vision is normal. Fundus is normal. ASSESSMENT: Mr. Lee needs to have this drained and I about to speak to the medical claims processor to arrange draining it. Kermit Lopez MD
[2018-07-25] MEDS: Neomy-Polymyx-Dexameth Ophth Susp (5 ml) OD SCH ×3 (11:24→17:56)
--- NOTE | 2018-07-25 16:32 | CP.PCM.PN ---
Subjective - Date & Time of Evaluation Date of Evaluation: 07/25/18 Time of Evaluation: 14:15 - Subjective Subjective: Infectious Disease Follow Up: July 25, 2018 42 yo male with right periorbital swelling with PMHx of Hepatitis C, IVDA, anxiety, and depression. He states no change in vision and he can move the eye in all morrison. He is also noted to have open wounds on both arms. He is still actively using Heroin. He also complains of right 2nd toe pain. On Zosyn and IV Vancomycin. Right periorbital cellultis very slowly improving but still present. Ophthalmology states that area need to be drained. Objective - Vital Signs/Intake and Output Vital Signs (last 24 hours): Temp Pulse Resp BP Pulse Ox 98.6 F 76 14 124/73 98 07/25/18 08:00 07/25/18 08:00 07/25/18 08:00 07/25/18 08:00 07/25/18 04:10 - Medications Medications: Current Medications Bacitracin (Bacitracin) 0 gm TOP 5XD KARLY Last Admin: 07/25/18 14:00 Dose: Not Given Clonazepam (Klonopin) 0.5 mg PO BID KARLY; Protocol Last Admin: 07/25/18 11:24 Dose: 0.5 mg Heparin Sodium (Porcine) (Heparin) 5,000 units SC Q8 KARLY; Protocol Last Admin: 07/25/18 14:00 Dose: Not Given Vancomycin HCl (Vancomycin 1gm) 1 gm in 250 mls @ 167 mls/hr IVPB Q12H KARLY; Protocol Last Admin: 07/25/18 12:53 Dose: 167 mls/hr Piperacillin Sod/Tazobactam Sod (Zosyn 3.375 In Ns 100ml) 100 mls @ 25 mls/hr IVPB Q8 KARLY; Protocol Last Admin: 07/25/18 16:17 Dose: 25 mls/hr Neomycin/Polymyxin/Dexamethasone (Maxitrol Opht Susp) 0 ml OD TID KARLY Last Admin: 07/25/18 14:45 Dose: 1 drop Nicotine (Nicoderm Cq) 1 patch TD DAILY KARLY Last Admin: 07/25/18 11:24 Dose: 1 patch Ondansetron HCl (Zofran Inj) 4 mg IVP Q6H PRN PRN Reason: Nausea/Vomiting Pantoprazole Sodium (Protonix Ec Tab) 40 mg PO ACB [facility] Last Admin: 07/25/18 08:30 Dose: 40 mg Tetrahydrozoline HCl/Zinc Sulfate (Visine 0.05% Opht Soln) 0 ml OU 5XD [facility] Last Admin: 07/25/18 14:45 Dose: 1 drop - Labs Labs: 07/24/18 07:40 07/24/18 07:40 - Constitutional Appears: Non-toxic, No Acute Distress, Unkempt, Chronically Ill - Head Exam Head Exam: NORMOCEPHALIC - Eye Exam Eye Exam: EOMI, Periorbital swelling (right orbit), Periorbital tenderness, PERRL Pupil Exam: NORMAL ACCOMODATION, PERRL - ENT Exam ENT Exam: Mucous Membranes Moist, Normal External Ear Exam, TM's Normal James aterally - Neck Exam Additional comments: scabbing at angle of right jaw. - Respiratory Exam Respiratory Exam: Clear to Ausculation Bilateral, NORMAL BREATHING PATTERN. absent: Rales, Rhonchi, Wheezes - Cardiovascular Exam Cardiovascular Exam: REGULAR RHYTHM, RRR, +S1, +S2 - GI/Abdominal Exam GI & Abdominal Exam: Soft, Normal Bowel Sounds. absent: Distended, Tenderness - Extremities Exam Extremities Exam: Full ROM, Normal Inspection - Neurological Exam Neurological Exam: Alert, Awake, CN II-XII Intact, Oriented x3 - Psychiatric Exam Psychiatric exam: Normal Affect, Normal Mood - Skin Additional comments: As above. Right periorbital cellulitis with collection. Abrasions and scratches seen on all extremities, neck, chest, and back. Lesions of folliculitis seen on upper back. Open wounds with scabbing measuring 5cm x 3cm on left and right forearm, no active bleeding noted. Scabbed areas seen on right jawline Assessment and Plan - Assessment and Plan (Free Text) Assessment: 42 yo male with IV Heroin and Cocaine use history with right periorbital cellulitis confirmed with CT orbit. Started on Zosyn and IV Vancomycin for care. Hepatitis C does not need to be addressed on this visit. He cannot get t reatment until he stops using illicit drugs. Supportive care. Very slow resolvement of the right periorbital cellulitis. Collection present that Ophthalmology states needs to be drained. Can consider use of Keflex and Clindamycin for 14 days more when patient is ready for discharge Thank you for allowing me to participate in the care of the patient, we will follow with you.
[2018-07-25 16:34] VITALS: BP 129/84; PULSE 79; RESP 16; TEMP 97.8
[2018-07-25] MEDS ORDERED: Lidocaine 1% Inj (20ml) IJ STA (17:23)
--- NOTE | 2018-07-25 20:19 | CP.PCM.DIS ---
<Radha Carmichael - Last Filed: 07/25/18 20:05> Provider - Provider Date of Admission: 07/22/18 22:38 Attending physician: Cee Fierro DO Primary care physician: Digna Urbina DO Consults: 07/22/18 23:17 Physician Consult Routine Comment: Consulting Provider: Lino Velasquez Consulting Physician: Lino Velasquez Reason for Consult: periorbital cellulitis 07/23/18 09:44 Consult [Physician Consult] Routine Comment: Consulting Provider: Kermit Lopez Consulting Physician: Kermit Lopez Reason for Consult: orbital vs pre-septal cellulitis, right eye 07/23/18 20:10 Respiratory Therapy Referral Routine Comment: smoker Physician Instructions: Reason For Exam: eval 07/25/18 07:54 Podiatry Consult Routine Comment: Consulting Provider: Jalen Vaughn Consulting Physician: Jalen Vaughn Reason for Consult: R foot 2nd digit dislocation Time Spent in preparation of Discharge (in minutes): 45 Diagnosis - Discharge Diagnosis (1) Periorbital cellulitis of right eye Status: Acute Hospital Course - Lab Results Lab Results: Micro Results 07/24/18 14:40 Naris MRSA Culture (Admit) - Final MRSA NOT DETECTED 07/22/18 21:00 Blood-Venous Blood Culture - Preliminary NO GROWTH AFTER 48 HOURS 07/22/18 20:45 Blood-Venous Blood Culture - Preliminary NO GROWTH AFTER 48 HOURS Most Recent Lab Values WBC 11.5 10^3/uL (4.5-11.0) H 07/24/18 07:40 RBC 4.85 10^6/uL (3.5-6.1) 07/24/18 07:40 Hgb 12.7 g/dL (14.0-18.0) L 07/24/18 07:40 Hct 38.8 % (42.0-52.0) L 07/24/18 07:40 MCV 80.0 fl (80.0-105.0) 07/24/18 07:40 MCH 26.2 pg (25.0-35.0) 07/24/18 07:40 MCHC 32.7 g/dl (31.0-37.0) 07/24/18 07:40 RDW 15.6 % (11.5-14.5) H 07/24/18 07:40 Plt Count 265 10^3/uL (120.0-450.0) 07/24/18 07:40 MPV 9.1 fl (7.0-11.0) 07/24/18 07:40 Gran % 85.3 % (50.0-68.0) H 07/24/18 07:40 Lymph % (Auto) 11.9 % (22.0-35.0) L 07/24/18 07:40 [facility] % (Auto) 2.5 % (1.0-6.0) 07/24/18 07:40 Eos % (Auto) 0.2 % (1.5-5.0) L 07/24/18 07:40 Baso % (Auto) 0.1 % (0.0-3.0) 07/24/18 07:40 Gran # 9.84 (1.4-6.5) H 07/24/18 07:40 Lymph # (Auto) 1.4 (1.2-3.4) 07/24/18 07:40 [facility] # (Auto) 0.3 (0.1-0.6) 07/24/18 07:40 Eos # (Auto) 0.0 (0.0-0.7) 07/24/18 07:40 Baso # (Auto) 0.01 K/mm3 (0.0-2.0) 07/24/18 07:40 Retic Count 0.51 % (0.5-1.5) 07/22/18 23:10 Sodium 136 mmol/L (132-148) 07/24/18 07:40 Potassium 3.9 mmol/L (3.6-5.0) 07/24/18 07:40 Chloride 104 mmol/L (98-107) 07/24/18 07:40 Carbon Dioxide 26 mmol/L (21-33) 07/24/18 07:40 Anion Gap 10 (10-20) 07/24/18 07:40 BUN 7 mg/dL (7-21) 07/24/18 07:40 Creatinine 0.6 mg/dl (0.8-1.5) L 07/24/18 07:40 Est GFR ( Amer) > 60 07/24/18 07:40 Est GFR (Non-Af Amer) > 60 07/24/18 07:40 Random Glucose 112 mg/dL (70-110) H 07/24/18 07:40 Calcium 8.7 mg/dL (8.4-10.5) 07/24/18 07:40 Phosphorus 3.8 mg/dL (2.5-4.5) 07/23/18 07:50 Magnesium 2.1 mg/dL (1.7-2.2) 07/23/18 07:50 Iron 44 ug/dL (45-180) L 07/22/18 23:10 TIBC 369 ug/dL (261-462) 07/22/18 23:10 % Saturation 12 % (20-55) L 07/22/18 23:10 Ferritin 23.6 ng/mL 07/22/18 23:10 Total Bilirubin 0.5 mg/dL (0.2-1.3) 07/24/18 07:40 AST 43 U/L (17-59) 07/24/18 07:40 ALT 43 U/L (7-56) 07/24/18 07:40 Alkaline Phosphatase 69 U/L (38-126) 07/24/18 07:40 Total Protein 7.3 g/dL (5.8-8.3) 07/24/18 07:40 Albumin 3.5 g/dL (3.0-4.8) 07/24/18 07:40 Globulin 3.8 gm/dL 07/24/18 07:40 Albumin/Globulin Ratio 0.9 (1.1-1.8) L 07/24/18 07:40 Procalcitonin 0.14 NG/ML (0.19-0.49) L 07/22/18 23:10 Urine Opiates Screen Positive (NEGATIVE) H 07/23/18 18:13 Urine Methadone Screen Negative (NEGATIVE) 07/23/18 18:13 Ur Barbiturates Screen Negative (NEGATIVE) 07/23/18 18:13 Ur Phencyclidine Scrn Negative (NEGATIVE) 07/23/18 18:13 Ur Amphetamines Screen Negative (NEGATIVE) 07/23/18 18:13 U Benzodiazepines Scrn Negative (NEGATIVE) 07/23/18 18:13 U Oth Cocaine Metabols Positive (NEGATIVE) H 07/23/18 18:13 U Cannabinoids Screen Negative (NEGATIVE) 07/23/18 18:13 HIV 1&2 Ag/Ab, 4th Gen Nonreactive (Nonreactive) 07/23/18 07:31 - Hospital Course Hospital Course: Upon Admission 42 year old male, whose past medical history includes IVDA, Hepatitis C (untreated), abscesses secondary to IVDA, cellulitis, folliculitis, anxiety, and depression, who presents to the Emergency department under police custody complaining of right eye swelling. Patient stated the swelling started 2 days before admission after he popped a pimple under his right eyelid. He state that he could still move his eyes and had no changes in vision. He denied trauma to his eye. Patient also complained of pain in the right 2nd toe and stated that he might have accidentally stepped on a needle one month ago. Patient also has open wounds on his left and right forearm after he cut himself and used the site for when he self-administered heroin Hospital Course Orbit/facial w/o contrast revealed preseptal soft tissue swelling of the right orbit with no intraorbital inflammation. Pt was treated with empiric course of vancomycin and zosyn. He was evaluated by ophthalmology, who recommended maxitrol ointment applied to eye and outpatient followup for drainage. Pt was also evaluated by ID who agreed with vanc/zosyn antibiotics. Pt complained of R foot pain, X ray of the foot revealed dislocation of 2nd PIP joint, middle & distal phalanx dislocated dorsal to proximal phalanx, no visible fractures. Podiatry evaluated patient. R toe was reduced at bedside. Pt R eye cellulitis had decreased significantly throughout hospital course. Upon Discharge Pt reports improvement in symptoms. He R eye swelling improved significantly. His vital signs are stable. He is hemodynamically stable. He is currently under police custody and will be discharged under police custody. He was given instruc tions on medication compliance and follow up with PMD and specification manager. Discharge Exam - Head Exam Head Exam: NORMOCEPHALIC Discharge Plan - Discharge Medications Prescriptions: RX: Bacitracin Ointment [Bacitracin] 1 g TOP BID #1 tube Cephalexin [Keflex] 500 mg PO TID 14 Days #42 capsule RX: Clindamycin [Cleocin] 450 mg PO TID 14 Days #42 cap Lactobacillus Acidophilus [Acidophilus Lactobacilli] 1 each PO BID 20 Days #40 capsule RX: Neomycin/Polymyxin/Dexamethaso [Maxitrol Opht Susp] 1 drop OD TID 10 Days #1 bottle RX: Tetrahydrozoline 0.05% Opht [Visine 0.05% Opht Soln] 2 drop OD TID 5 Days #1 bottle - Follow Up Plan Condition: FAIR Disposition: HOSPITALIZED Instructions: Cellulitis (DC), Cellulitis (GEN), Abscess (GEN) Additional Instructions: You were seen for infection of the area around the right eye, and for dislocated right 2nd toe vs hammertoe. You have been prescribed antibiotics for 14 days for the eye, eye ointment for 10 days, and have been given supplies to wrap/tape the toe for 1 week. Please fill and take the following prescriptions: -Keflex 500mg by mouth 3x per day (6am, 2pm, 10pm) for 14 days -Clindamycin 450mg by mouth 3x per day (6am, 2pm, 10pm) for 14 days -Tetrahydrozline eye drops, 3x per day to right eye (6am, 2pm, 10pm) for 5 days -Maxitrol eye drops, 3x per day to the right eye (6am, 2pm, 10pm) for 10 days -Lactobacillus Acidophillus pills, 2x per day (6am, 10pm) for 20 days -Bacitracin ointment 2x per day to affect areas on arms (6am, 10pm) for 5 days Please keep your right 2nd toe dry and wrapped for 1 week. You should tape it ONLY to the right 3rd toe; DO NOT tape it to your right big toe. Do not leave a wet bandage to the affected area for any prolonged period. Please follow up with either your primary care doctor (Dr. Urbina) or the snf physician within 3-5 days of discharge. Please follow up with the eye doctor (Dr. Lopez) within 2 weeks of discharge. Please follow up with the Marketing Services Rep within 2 weeks if you continue to have toe pain/difficulty walking. Please obtain follow up lab work in 1 week (CBC, CMP, script provide), to be given to your primary physician, to assess the efficacy of your antibiotic regimen. If you experience new concerning or worsening symptoms, such as abrupt changes in your vision or loss of vision, or persistent and uncontrollable diarrhea, please report to the nearest emergency department. Referrals: Jalen Vaughn DPM [Staff Provider] - Kermit Lopez MD [Staff Provider] - Digna Urbina DO [Primary Care Provider] - <Cee Fierro R - Last Filed: 08/01/18 21:19> Provider - Provider Primary care physician: Digna Urbina DO Consults: 07/22/18 23:17 Physician Consult Routine Comment: Consulting Provider: Lino Velasquez Consulting Physician: Lino Velasquez Reason for Consult: periorbital cellulitis 07/23/18 09:44 Consult [Physician Consult] Routine Comment: Consulting Provider: Kermit Lopez Consulting Physician: Kerimt Lopez Reason for Consult: orbital vs pre-septal cellulitis, right eye 07/23/18 20:10 Respiratory Therapy Referral Routine Comment: smoker Physician Instructions: Reason For Exam: eval 07/25/18 07:54 Podiatry Consult Routine Comment: Consulting Provider: Jalen Vaughn Consulting Physician: Jalen Vaughn Reason for Consult: R foot 2nd digit dislocation Hospital Course - Lab Results Lab Results: Micro Results 07/22/18 20:45 Blood-Venous Blood Culture - Final NO GROWTH AFTER 5 DAYS 07/22/18 20:45 Blood-Venous Gram Stain - Final TEST NOT PERFORMED 07/22/18 21:00 Blood-Venous Blood Culture - Final NO GROWTH AFTER 5 DAYS 07/22/18 21:00 Blood-Venous Gram Stain - Final TEST NOT PERFORMED 07/24/18 14:40 Naris MRSA Culture (Admit) - Final MRSA NOT DETECTED Most Recent Lab Values WBC 11.5 10^3/uL (4.5-11.0) H 07/24/18 07:40 RBC 4.85 10^6/uL (3.5-6.1) 07/24/18 07:40 Hgb 12.7 g/dL (14.0-18.0) L 07/24/18 07:40 Hct 38.8 % (42.0-52.0) L 07/24/18 07:40 MCV 80.0 fl (80.0-105.0) 07/24/18 07:40 MCH 26.2 pg (25.0-35.0) 07/24/18 07:40 MCHC 32.7 g/dl (31.0-37.0) 07/24/18 07:40 RDW 15.6 % (11.5-14.5) H 07/24/18 07:40 Plt Count 265 10^3/uL (120.0-450.0) 07/24/18 07:40 MPV 9.1 fl (7.0-11.0) 07/24/18 07:40 Gran % 85.3 % (50.0-68.0) H 07/24/18 07:40 Lymph % (Auto) 11.9 % (22.0-35.0) L 07/24/18 07:40 [facility] % (Auto) 2.5 % (1.0-6.0) 07/24/18 07:40 Eos % (Auto) 0.2 % (1.5-5.0) L 07/24/18 07:40 Baso % (Auto) 0.1 % (0.0-3.0) 07/24/18 07:40 Gran # 9.84 (1.4-6.5) H 07/24/18 07:40 Lymph # (Auto) 1.4 (1.2-3.4) 07/24/18 07:40 [facility] # (Auto) 0.3 (0.1-0.6) 07/24/18 07:40 Eos # (Auto) 0.0 (0.0-0.7) 07/24/18 07:40 Baso # (Auto) 0.01 K/mm3 (0.0-2.0) 07/24/18 07:40 Retic Count 0.51 % (0.5-1.5) 07/22/18 23:10 Sodium 136 mmol/L (132-148) 07/24/18 07:40 Potassium 3.9 mmol/L (3.6-5.0) 07/24/18 07:40 Chloride 104 mmol/L (98-107) 07/24/18 07:40 Carbon Dioxide 26 mmol/L (21-33) 07/24/18 07:40 Anion Gap 10 (10-20) 07/24/18 07:40 BUN 7 mg/dL (7-21) 07/24/18 07:40 Creatinine 0.6 mg/dl (0.8-1.5) L 07/24/18 07:40 Est GFR ( Amer) > 60 07/24/18 07:40 Est GFR (Non-Af Amer) > 60 07/24/18 07:40 Random Glucose 112 mg/dL (70-110) H 07/24/18 07:40 Calcium 8.7 mg/dL (8.4-10.5) 07/24/18 07:40 Phosphorus 3.8 mg/dL (2.5-4.5) 07/23/18 07:50 Magnesium 2.1 mg/dL (1.7-2.2) 07/23/18 07:50 Iron 44 ug/dL (45-180) L 07/22/18 23:10 TIBC 369 ug/dL (261-462) 07/22/18 23:10 % Saturation 12 % (20-55) L 07/22/18 23:10 Ferritin 23.6 ng/mL 07/22/18 23:10 Total Bilirubin 0.5 mg/dL (0.2-1.3) 07/24/18 07:40 AST 43 U/L (17-59) 07/24/18 07:40 ALT 43 U/L (7-56) 07/24/18 07:40 Alkaline Phosphatase 69 U/L (38-126) 07/24/18 07:40 Total Protein 7.3 g/dL (5.8-8.3) 07/24/18 07:40 Albumin 3.5 g/dL (3.0-4.8) 07/24/18 07:40 Globulin 3.8 gm/dL 07/24/18 07:40 Albumin/Globulin Ratio 0.9 (1.1-1.8) L 07/24/18 07:40 Procalcitonin 0.14 NG/ML (0.19-0.49) L 07/22/18 23:10 Urine Opiates Screen Positive (NEGATIVE) H 07/23/18 18:13 Urine Methadone Screen Negative (NEGATIVE) 07/23/18 18:13 Ur Barbiturates Screen Negative (NEGATIVE) 07/23/18 18:13 Ur Phencyclidine Scrn Negative (NEGATIVE) 07/23/18 18:13 Ur Amphetamines Screen Negative (NEGATIVE) 07/23/18 18:13 U Benzodiazepines Scrn Negative (NEGATIVE) 07/23/18 18:13 U Oth Cocaine Metabols Positive (NEGATIVE) H 07/23/18 18:13 U Cannabinoids Screen Negative (NEGATIVE) 07/23/18 18:13 HIV 1&2 Ag/Ab, 4th Gen Nonreactive (Nonreactive) 07/23/18 07:31 Attending/Attestation - Attestation I have personally seen and examined this patient.: Yes I have fully participated in the care of the patient.: Yes I have reviewed all pertinent clinical information, including history, physical exam and plan: Yes Notes (Text): Please note this DC summary is for 07/25/18 Patient seen and examined by me with resident 9:30AM and prior to discharge on 07/25/18. Case including discharge plan discussed with resident. Agree with above with following additions/corrections. Patient is a 42-year-old male with past medical history significant for IV drug abuse, untreated hepatitis C, abscesses secondary to IV drug abuse, cellulitis, folliculitis, anxiety, drug abuse, and depression that presented to the emergency room in police custody for right eye edema and erythema. Please see H&P for full details. Patient was admitted with right periorbital cellulitis, right 2nd toe pain, normocytic anemia, Hep C, heroin and cocaine abuse, and tobacco abuse. CT maxillofacial bones without contrast per radiologist showed preseptal soft tissue swelling of the right orbit, no intraorbital inflammation. Patient was continued on Vancomycin and Zosyn. Patient was followed by Infectious disease doctor. Leukocytosis improved. Patient remained afebrile. Procalcitonin was 0.14. Blood cultures showed no growth. Patient was seen by specification manager who stated patient will need drainage as an outpatient. The process of approval for the drainage was started while in the hospital. Patient was placed on eye drops. Patient also complained of right second toe pain. Right foot x-ray per radiologist showed dislocation of the second PIP joint, middle and distal phalanx dislocated dorsally proximal phalanx, there is no visible fracture. Podiatry was consulted and toe reduced at bedside as per oil well fishing tool operator. Patient was also found to have anemia of chronic disease. H&H remained stable. UDS was positive for opiates and cocaine. Patient was counseled at length on cessation. HIV was negative. Patient was continued on bacitracin for bilateral arms for open track cao. Patient also with a history of hep C. Per ID doctor, patient will need to stop drug abuse to be a candidate for treatment. Patient was counseled at length on cessation for tobacco abuse. Patient was feeling much better. Right eye pain improved. Patient was able to keep right eye open. Erythema and edema improved. Patient was cleared for discharge by ID and specification manager. Patient was cleared by ID on 14 days of Keflex and Clindamycin. Patient was discharged in police custody. On day of discharge, patient stated he was feeling much better. Patient states right eye pain improved. Patient was able to open his eye, no drainage from the eye. Patient denied abdominal pain. No nausea or vomiting. Patient was tolerating diet. Patient denied chest pain or palpitations. No shortness of breath. No headaches or lightheadedness. No dizziness. No fevers or chills. No dysuria. Patient was having bowel movements. General: Awake and alert lying in bed in no acute distress HEENT: Normocephalic, atraumatic. Extraocular muscles intact. Pupils equal and reactive, no scleral icterus. Improved erythema, edema, and tenderness surrounding right eye. Oropharynx is pink and moist. Neck is supple. Cardiovascular: Regular rhythm. Normal S1 and S2. No murmurs, rubs, or gallops appreciated Pulmonary: Normal respiratory effort. No rhonchi, rales, or wheezing appreciated Gastrointestinal: Soft, nondistended. Nontender. Positive bowel sounds all 4 quadrants. No guarding. Musculoskeletal: Moves all extremities. No calf tenderness. No edema. Central nervous system: AAO 3. Dermatologic: Skin warm and dry. Multiple track cao on body. Bilateral forearm open wounds with some scabbing. Please see chart for full details. Follow up instructions: Patient with PMD or snf physician within 3-5 days. Patient to follow up with eye doctor Dr. Lopez within 2 weeks. Patient to follow up with oil well fishing tool operator. Patient to have repeat lab work. All instructions explained to the patient in detail. Patient both understands and agrees to all instructions. Written instructions also given. Time spent in discharging the patient including chart review, medication reconciliation, discussion with the patient, bio medical technician, consultants, and nursing staff was approximately 45 minutes.
== END 2018-07-25 23:00 ==
LOC: ED 20:26 → UNDOADMIN 22:38 → ERH 22:38 → ED 07-25 23:00
DX: L03.213 Periorbital cellulitis (principal); F17.210 Nicotine dependence, cigarettes, uncomplicated; F32.9 Major depressive disorder, single episode, unspecified; F41.9 Anxiety disorder, unspecified; B19.20 Unspecified viral hepatitis C without hepatic coma
CPT/HCPCS: 70480; 71045; 73660; 80053; 80324; 80345; 80346; 80349; 80353; 80358; 80361; 82728; 83540; 83550; 83735; 83992; 84100; 84145; 85025; 85044; 87040; 87081; 87389; 96365; 96366; 96367; 96372; 96375; 96376; 99285; C9113; J1644; J2405; J2543

== ENCOUNTER 2018-11-29 09:25 | Emergency (ER) | payer SELFPAY ==
[2018-11-29 09:26] VITALS: BMI 22.3
[2018-11-29] MEDS ORDERED: TDAP Vaccine 0.5 mL Syr IM ONE (09:52)
--- NOTE | 2018-11-29 09:53 | ED PDOC ---
Arrival/HPI - General Time Seen by Provider: 11/29/18 09:40 Historian: Patient - History of Present Illness Narrative History of Present Illness (Text): 11/29/18 09:46 43 y/o male pmh including hepatitis C, nkda, last tetanus over 10 years ago, bib police for incarceration. Pt. was found to have cocaine in his car after he parked at another person's driveway, found non intoxicated but is IV drug abuser. Pt. stated that he has recently scratched his bilateral forearm scar and has some skin breaking, no fever or chills, no numbness or tingling, no difficulty moving the bilateral upper extremities, no night sweat, no dizziness, no chest pain or shortness of breath, no auditory or visual hallucination, no homicidal or suicidal ideation. Past Medical History - Provider Review Nursing Documentation Reviewed: Yes - Infectious Disease Hx of Infectious Diseases: None - Tetanus Immunization Tetanus Immunization: Unknown - Past Medical History Past Medical History: No Previous - Cardiac Hx Cardiac Disorders: No - Pulmonary Hx Respiratory Disorders: No - Neurological Hx Neurological Disorder: No - HEENT Hx HEENT Disorder: No - Renal Hx Renal Disorder: No - Endocrine/Metabolic Hx Endocrine Disorders: No - Hematological/Oncological Hx Blood Disorders: No - Integumentary Hx Dermatological Disorder: No - Musculoskeletal/Rheumatological Hx Musculoskeletal Disorders: No - Gastrointestinal Hx Gastrointestinal Disorders: No - Genitourinary/Gynecological Hx Genitourinary Disorders: No - Psychiatric Hx Psychophysiologic Disorder: Yes Hx Anxiety: Yes Hx Depression: Yes Hx Emotional Abuse: No Hx Substance Use: Yes - Past Surgical History Past Surgical History: No Previous - Surgical History Hx Appendectomy: Yes - Suicidal Assessment Feels Threatened In Home Enviroment: No Family/Social History - Physician Review Nursing Documentation Reviewed: Yes Family/Social History: Unknown Family HX Smoking Status: Heavy Smoker > 10 Cigarettes Daily Hx Alcohol Use: No Hx Substance Use: Yes Hx Substance Use Treatment: Yes (opiates) Allergies/Home Meds Allergies/Adverse Reactions: Allergies No Known Allergies Allergy (Verified 07/25/18 11:50) Review of Systems - Review of Systems Constitutional: absent: Fatigue, Fevers Eyes: absent: Vision Changes ENT: absent: Hearing Changes Respiratory: absent: SOB, Cough Cardiovascular: absent: Chest Pain Gastrointestinal: absent: Abdominal Pain, Diarrhea, Nausea, Vomiting Musculoskeletal: absent: Arthralgias, Back Pain Skin: Skin Lesions. absent: Rash, Pruritis Neurological: absent: Headache, Dizziness Psychiatric: absent: Anxiety, Depression, Suicidal Ideation Physical Exam Vital Signs Reviewed: Yes Temperature: Afebrile Blood Pressure: Normal Pulse: Regular Respiratory Rate: Normal Appearance: Positive for: Well-Appearing, Non-Toxic, Comfortable Pain Distress: Mild Mental Status: Positive for: Alert and Oriented X 3 - Systems Exam Head: Present: Atraumatic, Normocephalic Pupils: Present: PERRL Extroacular Muscles: Present: EOMI Conjunctiva: Present: Normal Ears: Present: NORMAL TM, Normal Canal. No: Erythema Mouth: Present: Moist Mucous Membranes Neck: Present: Normal Range of Motion Respiratory/Chest: Present: Clear to Auscultation, Good Air Exchange. No: Respiratory Distress, Accessory Muscle Use, Wheezes, Decreased Breath Sounds, Rales, Retracting, Rhonchi, Tachypneic, Tender to Palpation Cardiovascular: Present: Regular Rate and Rhythm, Normal S1, S2. No: Murmurs Abdomen: Present: Normal Bowel Sounds. No: Tenderness, Distention, Peritoneal Signs, Rebound, Guarding, McBurney's Point Tender, Rovsing's Sign Present Back: Present: Normal Inspection. No: CVA Tenderness, Midline Tenderness, Paraspinal Tenderness, Pain with Leg Raise, Decubitus Ulcer Upper Extremity: Present: Normal Inspection, Normal ROM, NORMAL PULSES, Neurovascularly Intact. No: Cyanosis, Edema, Tenderness, Swelling, Deformity Lower Extremity: Present: Normal Inspection, NORMAL PULSES, Normal ROM, Neurovascularly Intact, Capillary Refill < 2 s. No: Edema, Tenderness, Swelling, Deformity Neurological: Present: GCS=15, CN II-XII Intact, Speech Normal, Motor Func Grossly Intact, Normal Cerebellar Funct, Gait Normal, Memory Normal Skin: Present: Warm, Dry, Normal Color, Other (bilateral forearm ventral visible multiple long scars from previous injury but there is superficial abrasions approx. 2cm diameter noted to have 2 on each side, no cellulitis ulcer, no streaking, no cellulitis, FROM without limitation, sensation intact, motor 5/5, +radial pulse, capillary refill< 2 seconds, neurovascular intact. ). No: Rashes, Erythematous Lymphatic: No: Cervical Adenopathy Psychiatric: Present: Alert, Oriented x 3, Normal Insight, Normal Concentration Medical Decision Making ED Course and Treatment: 11/29/18 10:00 -tdap -clindamycin -pt. is not homicidal or suicidal ideation, no auditory or visual hallucination. There is no signs of infection, due to the patient is hepatitis C, will put him on the topical and oral antibiotic. -Pt. is medically clear and stable at this for incarceration and transport. -Discharge home with clindamycin, bacitracin oinment, follow up with your own pmd within 2 days, return to the ER for any new or worsening signs or symptoms. - PA / [employer] / Resident Statement /DO has reviewed & agrees with the documentation as recorded. Disposition/Present on Arrival - Present on Arrival Any Indicators Present on Arrival: No History of DVT/PE: No History of Uncontrolled Diabetes: No Urinary Catheter: No History of Decub. Ulcer: No History Surgical Site Infection Following: None - Disposition Have Diagnosis and Disposition been Completed?: Yes Diagnosis: Abrasion forearm Disposition: HOME/ ROUTINE Disposition Time: 10:02 Patient Plan: Discharge Condition: GOOD Additional Instructions: -Discharge home with clindamycin, bacitracin oinment, follow up with your own pmd within 2 days, return to the ER for any new or worsening signs or symptoms. Prescriptions: Bacitracin Ointment [Bacitracin] 1 appful TOP BID #15 g Clindamycin [Cleocin] 300 mg PO TID #30 cap Referrals: [facility] at [facility] [place] [Outside] - Follow up with primary Forms: WORK NOTE
[2018-11-29 13:31] VITALS: BP 119/72; PULSE 85; RESP 19; TEMP 97.9; O2SAT 99
== END 2018-11-29 13:32 ==
LOC: ED 09:25
DX: S50.812A Abrasion of left forearm, initial encounter (principal); S50.811A Abrasion of right forearm, initial encounter; X58.XXXA Exposure to other specified factors, initial encounter; Z65.3 Problems related to other legal circumstances; Z23 Encounter for immunization